=== PATIENT | female | born 1955 | race African-American/Black ===

== ENCOUNTER 2016-07-09 16:32 | Emergency (ER) | payer MEDICARE, OTHER ==
--- NOTE | 2016-07-09 16:54 | ER Document Report ---
ED Medical Screen (RME) - General Chief Complaint: Breathing Difficulty Stated Complaint: BREATHING ISSUES Notes: 60 yo female c/o cough and increasing shortness of breath. pt has hx/o lung cancer with bone mets, undergoing chemo. cough has been ongoing x 1 month, shortness of breath has been worsening x 1 week. oncologist, Dr Nguyễn, concerned pt might be throwing a clot. TRAVEL OUTSIDE OF THE [place] IN LAST 30 DAYS: No - Related Data Allergies/Adverse Reactions: amoxicillin trihydrate [From Augmentin] Allergy (Verified 07/09/16 16:39) azithromycin [Azithromycin] Allergy (Verified 07/09/16 16:39) hydrocodone bitartrate [From Vicodin] Allergy (Verified 07/09/16 16:39) Potassium Clavulanate * [From Augmentin] Allergy (Verified 07/09/16 16:39) moxifloxacin HCl [From Avelox] Adverse Reaction (Verified 07/09/16 16:39) Past Medical History - Social History Chew tobacco use (# tins/day): No Frequency of alcohol use: None Drug Abuse: None Endocrine Medical History: Reports: Hx Diabetes Mellitus Type 1, Hx Diabetes Mellitus Type 2 Renal/ Medical History: Reports: Hx Kidney Stones Malignancy Medical History: Reports: Hx Lung Cancer - Stage IV Past Surgical History: Reports: Hx Orthopedic Surgery - Rotator cuff repair right shoulder - Immunizations Hx Diphtheria, Pertussis, Tetanus Vaccination: No Physical Exam - Vital signs Vitals: Temp Pulse Resp BP Pulse Ox 98.0 F 104 H 20 156/90 H 99 07/09/16 16:43 07/09/16 16:43 07/09/16 16:43 07/09/16 16:43 07/09/16 16:43 Course - Vital Signs Vital signs: Temp Pulse Resp BP Pulse Ox 98.0 F 104 H 20 156/90 H 99 07/09/16 16:43 07/09/16 16:43 07/09/16 16:43 07/09/16 16:43 07/09/16 16:43
[2016-07-09] MEDS ORDERED: MORPHINE SULFATE 10 MG/ML INJ IV PRN ×3 (17:09→19:54)
[2016-07-09] MEDS ORDERED: ONDANSETRON HCL INJ/PF 4 MG/2 ML SDV IV ONE (17:10)
[2016-07-09] MEDS ORDERED: IPRATROPIUM/ALBUTEROL 0.5-2.5 MG/3 ML AMPUL NEB ONE (17:20)
[2016-07-09 17:52] LABS: ABSOLUTE BASOPHILS # (AUTO) 0.1 10^3/uL (0.0-0.2); ABSOLUTE LYMPHOCYTES (AUTO) 0.9 10^3/uL (0.5-4.7); ABSOLUTE MONOCYTES (AUTO) 0.4 10^3/uL (0.1-1.4); ABSOLUTE NEUT (AUTO) 3.9 10^3/uL (1.7-8.2); BASOPHILS % (AUTO) 1.5 % (0-2); EOSINOPHILS % (AUTO) 0.7 % (0-6); HEMOGLOBIN 10.8 g/dL (12.0-15.5); HGB HCT DIFFERENCE -1.6; LYMPHOCYTES % (AUTO) 17.1 % (13-45); MEAN CORPUSCULAR HEMOGLOBIN 24.7 pg (27.0-33.4); MEAN CORPUSCULAR HGB CONC 31.8 g/dL (32.0-36.0); MEAN CORPUSCULAR VOLUME 78 fl (80-97); MONOCYTES % (AUTO) 8.2 % (3-13); RED BLOOD COUNT 4.39 10^6/uL (3.72-5.28); RED CELL DISTRIBUTION WIDTH 17.3 % (11.5-14.0); SEGMENTED NEUTROPHILS % (AUTO) 72.5 % (42-78); WHITE BLOOD COUNT 5.4 10^3/uL (4.0-10.5)
[2016-07-09 18:14] LABS: ALANINE AMINOTRANSFERASE 24 U/L (9-52); ALBUMIN 2.8 g/dL (3.5-5.0); ALKALINE PHOSPHATASE 408 U/L (38-126); ANION GAP 11 (5-19); ASPARTATE AMINO TRANSFERASE 27 U/L (14-36); BILIRUBIN,TOTAL 0.4 mg/dL (0.2-1.3); BLOOD UREA NITROGEN 14 mg/dL (7-20); CALCIUM 8.2 mg/dL (8.4-10.2); CARBON DIOXIDE 23 mmol/L (22-30); CHLORIDE 99 mmol/L (98-107); CREATINE KINASE 21 U/L (30-135); CREATININE RESULT 0.89 mg/dL (0.52-1.25); POTASSIUM 4.4 mmol/L (3.6-5.0); SODIUM 132.8 mmol/L (137-145)
[2016-07-09 18:24] LABS: CREATINE KINASE MB 0.73 ng/mL (<4.55)
[2016-07-09 18:31] LABS: TROPONIN I < 0.012 ng/mL
[2016-07-09] MEDS ORDERED: NORMAL SALINE 1000 ML 1,000 ML IV PRN (18:31)
[2016-07-09 18:37] LABS: GLUCOSE 459 mg/dL (75-110)
[2016-07-09] MEDS ORDERED: INSULIN REG, HUMAN 100 UNIT/ML 3 ML VIAL (PYX) IV ONE (18:45)
--- NOTE | 2016-07-09 20:06 | ER Document Report ---
ED Respiratory Problem - General Chief Complaint: Breathing Difficulty Stated Complaint: BREATHING ISSUES Time seen by provider: 18:00 Mode of Arrival: Wheelchair Information source: Patient Notes: 60-year-old female with metastatic lung cancer presents to the emergency room with shortness of breath. Patient was at the oncology clinic and she was sent in to rule out pulmonary emboli. Patient states she's had progressively worsening shortness of breath over the last few weeks. She has had multiple rounds of antibiotics but the shortness of breath is progressed. She also states that her cancer levels have been increasing. Past medical history: Hypertension, diabetes, metastatic lung cancer: Patient was diagnosed in 2008 with stage IV lung cancer. Since that time, she's developed metastases to the spine and pelvis. TRAVEL OUTSIDE OF THE [place] IN LAST 30 DAYS: No - HPI Patient complains to provider of: Short of breath Onset: Just prior to arrival Initiating Event: Other Quality of pain: Dull - Lung cancer Severity: Moderate Pain Level: 4 Context: Other - Lung cancer Chest pain/discomfort: Constant Cough: denies: Nonproductive, Productive, Stridor, Suspect aspiration Sputum amount: None Associated symptoms: denies: Chills, Fever - Related Data Allergies/Adverse Reactions: amoxicillin trihydrate [From Augmentin] Allergy (Verified 07/09/16 16:39) azithromycin [Azithromycin] Allergy (Verified 07/09/16 16:39) hydrocodone bitartrate [From Vicodin] Allergy (Verified 07/09/16 16:39) Potassium Clavulanate * [From Augmentin] Allergy (Verified 07/09/16 16:39) moxifloxacin HCl [From Avelox] Adverse Reaction (Verified 07/09/16 16:39) Past Medical History - General Information source: Patient - Social History Smoking Status: Former Smoker Cigarette use (# per day): No Chew tobacco use (# tins/day): No Frequency of alcohol use: None Drug Abuse: None Lives with: Family Family History: Reviewed & Not Pertinent Patient has suicidal ideation: No Patient has homicidal ideation: No - Past Medical History Cardiac Medical History: Reports: None Pulmonary Medical History: Reports: Other - Lung cancer EENT Medical History: Reports: None Neurological Medical History: Reports: None Endocrine Medical History: Reports: Hx Diabetes Mellitus Type 1, Hx Diabetes Mellitus Type 2 Renal/ Medical History: Reports: Hx Kidney Stones Malignancy Medical History: Reports: Hx Lung Cancer - Stage IV GI Medical History: Reports: None Musculoskeltal Medical History: Reports None Skin Medical History: Reports None Psychiatric Medical History: Reports: None Traumatic Medical History: Reports: None Infectious Medical History: Reports: None Past Surgical History: Reports: Hx Orthopedic Surgery - Rotator cuff repair right shoulder - Immunizations Hx Diphtheria, Pertussis, Tetanus Vaccination: No Review of Systems - Review of Systems Constitutional: See HPI EENT: No symptoms reported Cardiovascular: No symptoms reported Respiratory: See HPI Gastrointestinal: No symptoms reported Genitourinary: No symptoms reported Female Genitourinary: No symptoms reported Musculoskeletal: No symptoms reported Skin: No symptoms reported Hematologic/Lymphatic: No symptoms reported Neurological/Psychological: No symptoms reported Physical Exam - Vital signs Vitals: Temp Pulse Resp BP Pulse Ox 98.0 F 104 H 20 156/90 H 99 07/09/16 16:43 07/09/16 16:43 07/09/16 16:43 07/09/16 16:43 07/09/16 16:43 Notes: Physical exam: GENERAL: 60-year-old female, alert and oriented 3, very pleasant, she does appear uncomfortable. She is having a lot of pain and is short of breath at times. HEAD: Atraumatic, normocephalic. EYES: Pupils equal round and reactive to light, extraocular movements intact, sclera anicteric, conjunctiva are normal. ENT: oropharynx clear without exudates. Moist mucous membranes. NECK: Normal range of motion, supple without lymphadenopathy or JVD. LUNGS: Breath sounds clear to auscultation bilaterally and equal. No wheezes rales or rhonchi. HEART: Regular rate and rhythm without murmurs, rubs or gallops. ABDOMEN: Soft, nontender, normoactive bowel sounds. No guarding, no rebound. No masses appreciated. EXTREMITIES: Normal range of motion, no pitting or edema. No clubbing or cyanosis. NEUROLOGICAL: Cranial nerves II through XII grossly intact. Normal speech, moving all extremities PSYCH: Normal mood, normal affect. SKIN: Warm, Dry, normal turgor, no rashes or lesions noted. Course - Vital Signs Vital signs: Temp Pulse Resp BP Pulse Ox 98.0 F 104 H 14 156/94 H 98 07/09/16 16:43 07/09/16 16:43 07/09/16 19:01 07/09/16 19:01 07/09/16 19:39 - Laboratory Result Diagrams: 07/09/16 17:35 07/09/16 17:35 Laboratory results interpreted by me: 07/09/16 07/09/16 17:35 17:35 Hgb 10.8 L Hct 34.0 L MCV 78 L MCH 24.7 L MCHC 31.8 L RDW 17.3 H Sodium 132.8 L Glucose 459 H* Calcium 8.2 L Alkaline Phosphatase 408 H Creatine Kinase 21 L Total Protein 6.0 L Albumin 2.8 L - EKG Interpretation by Me Rate: Normal Rhythm: NSR - EKG shows normal sinus rhythm with a ventricular rate of 107, left axis deviation, poor R-wave progression Discharge - Discharge Clinical Impression: dyspnea, lung cancer Condition: Stable Disposition: HOME, SELF-CARE Additional Instructions: Recommendations: Use the oxygen as needed: 2 L nasal cannula. Continue current medicines. Follow-up with Dr. Art at 10 AM tomorrow in the office for chemotherapy. Return to the emergency room for any worsening shortness of breath or any concerns he getting worse.
[2016-07-09 21:13] VITALS: BP 138/93
--- NOTE | 2016-07-09 23:05 | EKG REPORT ---
SEVERITY:- ABNORMAL ECG - SINUS TACHYCARDIA LEFT AXIS DEVIATION LVH WITH SECONDARY REPOLARIZATION ABNORMALITY : Confirmed by: Dharmesh Morgan 09-Jul-2016 23:04:30
== END 2016-07-09 21:16 | disposition home or self-care (01) ==
LOC: ER 16:32
DX: C34.90 Malignant neoplasm of unspecified part of unspecified bronchus or lung (principal); R06.00 Dyspnea, unspecified; E11.9 Type 2 diabetes mellitus without complications; C79.51 Secondary malignant neoplasm of bone; C79.89 Secondary malignant neoplasm of other specified sites; Z88.3 Allergy status to other anti-infective agents; Z88.6 Allergy status to analgesic agent; Z87.891 Personal history of nicotine dependence; Z87.442 Personal history of urinary calculi
CPT/HCPCS: 93005; 96376; 94640; 99285; 96361; 96374; 96375; 36415; 82553; 82962; 82550; 85025; 80053; 84484; 71010; 71275; 93010; J2270; A9270 ×2; J2405; J7030; J1815; J7620

== ENCOUNTER → 2016-10-12 | Outpatient (CLI) | payer MEDICARE, OTHER | LOC: RAD 15:15 | PROVIDERS: ATTEND Internal Medicine Medical Oncology | DX: C34.91 Malignant neoplasm of unspecified part of right bronchus or lung (principal); C79.51 Secondary malignant neoplasm of bone; D63.0 Anemia in neoplastic disease | CPT/HCPCS: 78815; A9552 ==

== ENCOUNTER 2016-10-22 15:19 | Emergency (ER) | payer MEDICARE, OTHER ==
[2016-10-22] MEDS ORDERED: ASPIRIN 81 MG TABLET, CHEWABLE PO ONE (15:24)
[2016-10-22] MEDS ORDERED: NORMAL SALINE 1000 ML 1,000 ML IV PRN (16:01)
--- NOTE | 2016-10-22 16:05 | ER Document Report ---
ED General - General Chief Complaint: Shortness Of Breath Stated Complaint: SHORTNESS OF BREATH Time seen by provider: 16:03 Mode of Arrival: Ambulatory Information source: Patient Notes: This is a 61-year-old female with a history of metastatic lung cancer, diabetes , hypertension who presents to the emergency room with increased weakness, fatigue. Patient was referred to the emergency room from the oncology clinic for the above symptoms. Allergies: Penicillin, fluoroquinolones, macrolides, hydrocodone, carboplatin. Medications: Percocet, glipizide, lisinopril, metformin TRAVEL OUTSIDE OF THE [place] IN LAST 30 DAYS: No - HPI Onset: Last week Onset/Duration: Gradual Quality of pain: Dull Severity: Moderate Pain Level: 2 Associated symptoms: Shortness of breath - Chronic shortness of breath. denies : Chills, Fever Exacerbated by: Movement Relieved by: Denies Similar symptoms previously: Yes Recently seen / treated by doctor: Yes - Related Data Allergies/Adverse Reactions: amoxicillin trihydrate [From Augmentin] Allergy (Verified 07/09/16 16:39) azithromycin [Azithromycin] Allergy (Verified 07/09/16 16:39) hydrocodone bitartrate [From Vicodin] Allergy (Verified 07/09/16 16:39) Potassium Clavulanate * [From Augmentin] Allergy (Verified 07/09/16 16:39) moxifloxacin HCl [From Avelox] Adverse Reaction (Verified 07/09/16 16:39) Past Medical History - General Information source: Patient - Social History Smoking Status: Unknown if Ever Smoked Chew tobacco use (# tins/day): No Frequency of alcohol use: None Drug Abuse: None Lives with: Alone Family History: Reviewed & Not Pertinent Patient has suicidal ideation: No Patient has homicidal ideation: No - Past Medical History Cardiac Medical History: Reports: None Pulmonary Medical History: Reports: Other - Metastatic lung cancer EENT Medical History: Reports: None Neurological Medical History: Reports: None Endocrine Medical History: Reports: Hx Diabetes Mellitus Type 1, Hx Diabetes Mellitus Type 2 Renal/ Medical History: Reports: Hx Kidney Stones Malignancy Medical History: Reports: Hx Lung Cancer - Stage IV GI Medical History: Reports: None Musculoskeltal Medical History: Reports None Skin Medical History: Reports None Psychiatric Medical History: Reports: None Traumatic Medical History: Reports: None Infectious Medical History: Reports: None Past Surgical History: Reports: Hx Orthopedic Surgery - Rotator cuff repair right shoulder - Immunizations Hx Diphtheria, Pertussis, Tetanus Vaccination: No Review of Systems - Review of Systems Constitutional: See HPI EENT: No symptoms reported Cardiovascular: No symptoms reported Respiratory: See HPI Gastrointestinal: See HPI, Poor appetite, Poor fluid intake Genitourinary: No symptoms reported Female Genitourinary: No symptoms reported Musculoskeletal: No symptoms reported Skin: No symptoms reported Hematologic/Lymphatic: No symptoms reported Neurological/Psychological: No symptoms reported Physical Exam - Vital signs Vitals: Pulse Ox 100 10/22/16 15:24 Notes: Physical exam: GENERAL: Cachectic, ill-appearing 61-year-old female, alert and oriented 3. Blood pressure 92/58, heart rate 107, respiratory rate 20 HEAD: Atraumatic, normocephalic. EYES: Pupils equal round and reactive to light, extraocular movements intact, sclera anicteric, conjunctiva are normal. ENT: TMs normal, nares patent, oropharynx clear without exudates. Moist mucous membranes. NECK: Normal range of motion, supple without lymphadenopathy or JVD. LUNGS: Breath sounds clear to auscultation bilaterally and equal. No wheezes rales or rhonchi. HEART: Regular rate and rhythm without murmurs, rubs or gallops. ABDOMEN: Soft, normoactive bowel sounds. No tenderness to palpation. No guarding, no rebound. No masses appreciated. EXTREMITIES: Normal range of motion, no pitting or edema. No clubbing or cyanosis. NEUROLOGICAL: Cranial nerves II through XII grossly intact. Normal speech, normal gait. PSYCH: Normal mood, normal affect. SKIN: Warm, Dry, normal turgor, no rashes or lesions noted. Course - Re-evaluation Re-evalutation: 10/22/16 20:34 Patient observed several hours. She was given IV morphine for pain. She was given some Ativan for anxiety. She routinely K takes pain medicines and anxiety medicines for her cancer. She was given IV fluids and appears much better now. He is currently eating her meal. - Vital Signs Vital signs: Temp Pulse Resp BP Pulse Ox 98.4 F 108 H 18 123/88 H 100 10/22/16 15:34 10/22/16 15:34 10/22/16 22:00 10/22/16 22:00 10/22/16 22:00 - Laboratory Result Diagrams: 10/22/16 17:25 10/22/16 17:25 Laboratory results interpreted by me: 10/22/16 10/22/16 17:25 17:25 WBC 3.9 L Hgb 8.8 L Hct 28.2 L MCV 74 L MCH 23.3 L MCHC 31.3 L RDW 17.8 H Sodium 136.7 L Est GFR (Non-Af Amer) 52 L Glucose 128 H Calcium 8.3 L Total Protein 5.0 L Albumin 2.2 L - Diagnostic Test Radiology reviewed: Image reviewed, Reports reviewed - Chest x-ray shows no infiltrates - EKG Interpretation by Me Rate: Tachycardia - EKG shows sinus tachycardia with a ventricular rate of 111, poor R-wave progression, no acute ST-T wave changes Discharge - Discharge Clinical Impression: weakness, dehydration, metastatic lung cancer Condition: Stable Disposition: HOME, SELF-CARE Additional Instructions: Recommendations: Continue current medicines. Apply the bacitracin to the inside of the left nostril with a Q-tip as discussed : You can do it up to 3 times a day. It does not have to be thick. Follow-up with Dr. Luciano as planned. Return to the emergency room for any shortness of breath or concerns he getting worse. Prescriptions: Bacitracin Zinc [Bacitracin Oint 15 gm] 1 applic TP DAILY #1 tube Referrals: NIKITA LEIVA MD [Primary Care Provider] - Follow up as needed NINI LUCIANO MD [ACTIVE STAFF] - Follow up as needed
[2016-10-22 17:48] LABS: ABSOLUTE BASOPHILS # (AUTO) 0.1 10^3/uL (0.0-0.2); ABSOLUTE LYMPHOCYTES (AUTO) 0.7 10^3/uL (0.5-4.7); ABSOLUTE MONOCYTES (AUTO) 0.3 10^3/uL (0.1-1.4); ABSOLUTE NEUT (AUTO) 2.8 10^3/uL (1.7-8.2); BASOPHILS % (AUTO) 1.3 % (0-2); EOSINOPHILS % (AUTO) 0.7 % (0-6); HEMATOCRIT 28.2 % (36.0-47.0); HEMOGLOBIN 8.8 g/dL (12.0-15.5); HGB HCT DIFFERENCE -1.8; LYMPHOCYTES % (AUTO) 17.7 % (13-45); MEAN CORPUSCULAR HEMOGLOBIN 23.3 pg (27.0-33.4); MEAN CORPUSCULAR HGB CONC 31.3 g/dL (32.0-36.0); MEAN CORPUSCULAR VOLUME 74 fl (80-97); MONOCYTES % (AUTO) 8.8 % (3-13); RED BLOOD COUNT 3.79 10^6/uL (3.72-5.28); RED CELL DISTRIBUTION WIDTH 17.8 % (11.5-14.0); SEGMENTED NEUTROPHILS % (AUTO) 71.5 % (42-78); WHITE BLOOD COUNT 3.9 10^3/uL (4.0-10.5)
[2016-10-22 18:10] LABS: ALANINE AMINOTRANSFERASE 26 U/L (9-52); ALBUMIN 2.2 g/dL (3.5-5.0); ALKALINE PHOSPHATASE 98 U/L (38-126); ANION GAP 9 (5-19); ASPARTATE AMINO TRANSFERASE 28 U/L (14-36); BILIRUBIN,DIRECT 0.3 mg/dL (0.0-0.4); BILIRUBIN,TOTAL 0.3 mg/dL (0.2-1.3); BLOOD UREA NITROGEN 15 mg/dL (7-20); CALCIUM 8.3 mg/dL (8.4-10.2); CARBON DIOXIDE 26 mmol/L (22-30); CHLORIDE 102 mmol/L (98-107); CREATINE KINASE 32 U/L (30-135); CREATININE RESULT 1.08 mg/dL (0.52-1.25); GLUCOSE 128 mg/dL (75-110); SODIUM 136.7 mmol/L (137-145)
[2016-10-22 18:18] LABS: CREATINE KINASE MB 0.38 ng/mL (<4.55)
[2016-10-22 18:19] LABS: TROPONIN I < 0.012 ng/mL
[2016-10-22] MEDS ORDERED: LORAZEPAM 0.5 MG TABLET PO ONE (18:30)
[2016-10-22] MEDS ORDERED: MORPHINE SULFATE 10 MG/ML INJ IV PRN (19:10)
[2016-10-22] MEDS ORDERED: BACITRACIN ZINC OINTMENT 15 GM TP ONE (19:11)
[2016-10-22] MEDS ORDERED: MORPHINE SULFATE 10 MG/ML INJ IV ONE (19:59)
--- NOTE | 2016-10-22 20:07 | EKG REPORT ---
SEVERITY:- ABNORMAL ECG - SINUS TACHYCARDIA LEFT POSTERIOR FASCICULAR BLOCK BORDERLINE R WAVE PROGRESSION, ANTERIOR LEADS : Confirmed by: Monie Valdovinos MD 22-Oct-2016 20:06:13
[2016-10-22 22:16] VITALS: BP 123/88
== END 2016-10-22 22:31 | disposition home or self-care (01) ==
LOC: ER 15:19
DX: C34.90 Malignant neoplasm of unspecified part of unspecified bronchus or lung (principal); R53.1 Weakness; E86.0 Dehydration; R06.02 Shortness of breath; E11.9 Type 2 diabetes mellitus without complications; I10 Essential (primary) hypertension; R53.83 Other fatigue
CPT/HCPCS: 93005; 99285; 96361; 96374; 36415; 82553; 82550; 83735; 85025; 80053; 84484; 71010; 93010; J2270; J7030; A9270; J3490

== ENCOUNTER 2016-10-26 17:01 | Inpatient (IN) | payer MEDICARE, OTHER ==
[2016-10-26] MEDS ORDERED: IPRATROPIUM/ALBUTEROL 0.5-2.5 MG/3 ML AMPUL NEB ONE ×2 (17:35→19:35)
[2016-10-26] MEDS ORDERED: ONDANSETRON HCL INJ/PF 4 MG/2 ML SDV IV ONE (17:36)
[2016-10-26] MEDS ORDERED: MORPHINE SULFATE 10 MG/ML INJ IV ONE ×3 (17:36→21:15)
[2016-10-26] MEDS ORDERED: NORMAL SALINE 500 ML IV ONE ×2 (17:37→21:24)
--- NOTE | 2016-10-26 17:41 | ER Document Report ---
ED General - General Chief Complaint: Shortness Of Breath Stated Complaint: SHORTNESS OF BREATH Mode of Arrival: Ambulatory Information source: Patient, Relative Notes: This is a 61-year-old female with a history of stage IV metastatic lung cancer who presents with worsening shortness of breath and pain all over for the past 2 or 3 days. Of note she was seen here with similar symptoms 4 days ago. She denies fevers, chills. She is currently undergoing chemotherapy regimen by Dr Cortez, last treatment 2 weeks ago. TRAVEL OUTSIDE OF THE [place] IN LAST 30 DAYS: No - Related Data Allergies/Adverse Reactions: amoxicillin trihydrate [From Augmentin] Allergy (Verified 10/26/16 23:09) azithromycin [Azithromycin] Allergy (Verified 10/26/16 17:10) hydrocodone bitartrate [From Vicodin] Allergy (Verified 10/26/16 17:10) Potassium Clavulanate * [From Augmentin] Allergy (Verified 10/26/16 23:09) moxifloxacin HCl [From Avelox] Adverse Reaction (Verified 10/26/16 17:10) Past Medical History - General Information source: Patient, Relative, [facility] Records - Social History Smoking Status: Former Smoker Family History: Reviewed & Not Pertinent Patient has suicidal ideation: No Patient has homicidal ideation: No Endocrine Medical History: Reports: Hx Diabetes Mellitus Type 1, Hx Diabetes Mellitus Type 2 Renal/ Medical History: Reports: Hx Kidney Stones. Denies: Hx Peritoneal Dialysis Malignancy Medical History: Reports: Hx Lung Cancer - Stage IV Past Surgical History: Reports: Hx Orthopedic Surgery - Rotator cuff repair right shoulder - Immunizations Hx Diphtheria, Pertussis, Tetanus Vaccination: No Review of Systems - Review of Systems Constitutional: denies: Chills, Fever EENT: No symptoms reported Cardiovascular: See HPI, Dyspnea. denies: Chest pain Respiratory: See HPI Gastrointestinal: No symptoms reported Musculoskeletal: No symptoms reported Hematologic/Lymphatic: No symptoms reported Neurological/Psychological: No symptoms reported Physical Exam - Vital signs Vitals: Temp Pulse Resp BP Pulse Ox 97.8 F 119 H 22 H 124/81 72 L 10/26/16 17:08 10/26/16 17:08 10/26/16 17:08 10/26/16 17:08 10/26/16 17:08 - Notes Notes: PHYSICAL EXAMINATION: GENERAL: cachetic, chronically ill appearing female in mild to moderate respiratory distress, with conversational dyspnea HEAD: Atraumatic, normocephalic. EYES: Pupils equal round and reactive to light, extraocular movements intact, sclera anicteric, conjunctiva are normal. ENT: nares patent, oropharynx clear without exudates. mucous membranes dry NECK: Normal range of motion, supple without lymphadenopathy LUNGS: scattered wheezes bilaterally, R>L. Diminished breath sounds bilateral bases. Tachypnea with retractions. HEART: Tachycardic rate, regular rhythm, no murmur appreciated ABDOMEN: Soft, nontender, normoactive bowel sounds. No guarding, no rebound EXTREMITIES: Normal range of motion, no pitting or edema. NEUROLOGICAL: Cranial nerves grossly intact. No gross focal motor or sensory deficits appreciated PSYCH: Normal mood, somewhat anxious affect. SKIN: Warm, Dry, normal turgor, no rashes or lesions noted. Course - Re-evaluation Re-evalutation: 10/26/16 17:40 Pt appears emaciated and chronically ill. She has an increased O2 requirement. I had an initial discussion with patient and her family regarding her code status, and she states she has never really had this discussion before and as of this point desires full resuscitation including intubation should that become necessary. Pt had initial good response to neb treatments, but later work of breathing noted to increase and her O2 requirement increased to 6L NC. BiPap ordered, although initially patient refused secondary to increased anxiety. Ativan ordered. Pt conversant, noted to eat a salad while here in the ER, yet work of breathing increasing. CT does not demonstrate acute change from prior, and is consistent with diffuse metastatic disease. No PE. Discussed with Dr Camacho for admission. - Vital Signs Vital signs: Temp Pulse Resp BP Pulse Ox 97.8 F 122 H 27 H 95/70 L 100 10/26/16 17:11 10/26/16 17:11 10/26/16 21:55 10/26/16 23:01 10/26/16 23:01 - Laboratory Result Diagrams: 10/26/16 17:35 10/26/16 17:35 Laboratory results interpreted by me: 10/26/16 10/26/16 10/26/16 17:35 17:35 19:55 Hgb 10.2 L Hct 32.9 L MCV 74 L MCH 22.9 L MCHC 31.1 L RDW 19.4 H Lymphocytes % 12.7 L Potassium 5.4 H Glucose 160 H AST 40 H Alkaline Phosphatase 138 H Total Protein 5.4 L Albumin 2.4 L Urine Protein >=500 H Ur Leukocyte Esterase MODERATE H Urine Ascorbic Acid 40 H - Diagnostic Test Radiology reviewed: Reports reviewed - CXR: no change CTA chest: no PE, no significant change from prior, metastatic lung CA Critical Care Note - Critical Care Note Total time excluding time spent on procedures (mins): 35 - minutes of critical care time spent in direct contact evaluating and reevaluating the patient, treating symptoms, reviewing labs and studies and speaking with family and consultants excluding any procedures Discharge - Discharge Clinical Impression: Respiratory distress Stage 4 lung cancer Qualifiers: Laterality: unspecified laterality Qualified Code(s): C34.90 - Malignant neoplasm of unspecified part of unspecified bronchus or lung UTI (urinary tract infection) Qualifiers: Urinary tract infection type: site unspecified Hematuria presence: without hematuria Qualified Code(s): N39.0 - Urinary tract infection, site not specified Condition: Serious Disposition: ADMITTED INPATIENT Admitting Provider: Hospitalist - Dr Camacho Unit Admitted: ICU
[2016-10-26 18:05] LABS: ABSOLUTE BASOPHILS # (AUTO) 0.1 10^3/uL (0.0-0.2); ABSOLUTE LYMPHOCYTES (AUTO) 0.8 10^3/uL (0.5-4.7); ABSOLUTE MONOCYTES (AUTO) 0.7 10^3/uL (0.1-1.4); ABSOLUTE NEUT (AUTO) 4.6 10^3/uL (1.7-8.2); BASOPHILS % (AUTO) 1.1 % (0-2); EOSINOPHILS % (AUTO) 0.4 % (0-6); HEMATOCRIT 32.9 % (36.0-47.0); HEMOGLOBIN 10.2 g/dL (12.0-15.5); HGB HCT DIFFERENCE -2.3; LYMPHOCYTES % (AUTO) 12.7 % (13-45); MEAN CORPUSCULAR HEMOGLOBIN 22.9 pg (27.0-33.4); MEAN CORPUSCULAR HGB CONC 31.1 g/dL (32.0-36.0); MEAN CORPUSCULAR VOLUME 74 fl (80-97); MONOCYTES % (AUTO) 10.5 % (3-13); RED BLOOD COUNT 4.47 10^6/uL (3.72-5.28); RED CELL DISTRIBUTION WIDTH 19.4 % (11.5-14.0); SEGMENTED NEUTROPHILS % (AUTO) 75.3 % (42-78); WHITE BLOOD COUNT 6.2 10^3/uL (4.0-10.5)
[2016-10-26 18:20] LABS: ALANINE AMINOTRANSFERASE 24 U/L (9-52); ALBUMIN 2.4 g/dL (3.5-5.0); ALKALINE PHOSPHATASE 138 U/L (38-126); ANION GAP 9 (5-19); ASPARTATE AMINO TRANSFERASE 40 U/L (14-36); BILIRUBIN,DIRECT 0.1 mg/dL (0.0-0.4); BILIRUBIN,TOTAL 0.2 mg/dL (0.2-1.3); BLOOD UREA NITROGEN 18 mg/dL (7-20); CALCIUM 8.5 mg/dL (8.4-10.2); CARBON DIOXIDE 25 mmol/L (22-30); CHLORIDE 104 mmol/L (98-107); CREATININE RESULT 0.93 mg/dL (0.52-1.25); GLUCOSE 160 mg/dL (75-110); POTASSIUM 5.4 mmol/L (3.6-5.0); SODIUM 138.4 mmol/L (137-145); TOTAL PROTEIN 5.4 g/dL (6.3-8.2)
[2016-10-26 20:42] LABS: APPEARANCE,URINE SLIGHTLY-CLOUDY; BILIRUBIN,URINE NEGATIVE (NEGATIVE); GLUCOSE, URINE NEGATIVE (NEGATIVE); KETONES,URINE NEGATIVE (NEGATIVE); LEUKOCYTE ESTERASE,URINE MODERATE (NEGATIVE); NITRITE,URINE NEGATIVE (NEGATIVE); PROTEIN,URINE >=500 mg/dL (NEGATIVE); URINE SPECIFIC GRAVITY 1.011; UROBILINOGEN,URINE NEGATIVE mg/dL (<2.0)
[2016-10-26] MEDS ORDERED: METHYLPREDNISOLONE INJ 125 MG/2 ML SDV IV ONE (21:07)
[2016-10-26] MEDS ORDERED: CEFTRIAXONE 1 GM/D5W RTU 50 ML IV ONE (21:08)
[2016-10-26] MEDS ORDERED: LORAZEPAM INJ 2 MG/1 ML VIAL IV ONE ×2 (21:15→21:43)
[2016-10-26] MEDS ORDERED: LEVALBUTEROL HCL NEB 1.25 MG/3 ML AMPUL NEB ONE (21:26)
[2016-10-26] MEDS ORDERED: GLUCAGON,HUMAN RECOMB 1 MG INJ IM PRN (23:05)
[2016-10-26] MEDS ORDERED: DEXTROSE 50%-WATER 25 GM/50 ML DISP.SYRIN IV PRN ×2 (23:05)
[2016-10-26] MEDS ORDERED: DEXTROSE 40% GEL 15 GM TUBE PO PRN ×2 (23:05)
[2016-10-26] MEDS ORDERED: NORMAL SALINE 1000 ML 1,000 ML IV PRN (23:10)
[2016-10-26] MEDS ORDERED: ALBUTEROL SULFATE 0.083% NEB 2.5 MG/3 ML AMPUL NEB PRN (23:10)
[2016-10-26] MEDS ORDERED: PHARMACY COMMUNICATION ORDER MC NR (23:15)
[2016-10-26] MEDS ORDERED: VANCOMYCIN HCL 0 MG in DEXTROSE 5%-WATER 250 ML IV NR (23:15)
[2016-10-26] MEDS ORDERED: ACETAMINOPHEN 650 MG SUPP.RECT PR PRN (23:19)
[2016-10-26] MEDS ORDERED: CEFEPIME 1 GM/D5W RTU 50 ML IV SCH (23:30)
[2016-10-26 23:31] LABS: VENOUS BLOOD HCO3 23.8 mmol/L (20-32); VENOUS BLOOD PCO2 50.3 mmHg (35-63); VENOUS BLOOD PH 7.29 (7.30-7.42)
--- NOTE | 2016-10-26 23:38 | PDOC H&P ---
History of Present Illness Admission Date/PCP: 10/26/16 21:51 PCP ?? [facility] Patient complains of: SOB History of Present Illness: SATHYA HINSON is a 61 year old female with stage IV lung cancer, metastatic to bone, long-term smoker, having quit 2 weeks ago, but with no specific diagnosis of asthma or COPD, who presents to the emergency room for evaluation of above complaint. Patient has been discussed with emergency room physician who evaluated the patient. Patient is quite ill and fatigued, along with somewhat confused and is able to provide no history whatsoever in terms of acute or chronic events, review of systems, personal habits, family history, etc. daughter is present at her bedside, with her approval, and is helpful and informative. No old inpatient records available for review. 2 to three-day history of progressive shortness of breath and generalized pain, particularly in spine and chest wall. No fever or chills, nausea vomiting, diarrhea or dysuria, or abdominal pain. No recent antibiotic usage. Patient has been placed on BiPAP by the emergency room physician. Emergency room physician also discussed CODE STATUS with patient and daughter. Per daughter, that topic reportedly has never been addressed on an outpatient basis. She and patient desire full CODE STATUS. . Laboratory results are listed in [facility] and are reviewed. X-ray summary results are listed below, with full report(s) reviewed. Stable right upper lobe cavitary lesion noted on CT scan.. EKG reviewed. And compared to prior tracing from the of this month. Social history/personal habits: . Lives alone, but with close family follow-up. Long-term smoker; stopped 2 weeks ago. No alcohol or illicit drug use. Allergies/adverse reactions are listed in [facility] and are reviewed. No problems with Rocephin given earlier this emergency room stay. Home medications Home medications initially autopopulated into [facility] may not accurately reflect patient's true medications, dosages, and/or frequencies. fastener technologist to reconcile medications. Unfortunately, patient not able to provide any information regarding her medications/dosages/frequencies. REVIEW OF SYSTEMS: Constitutional: No fever or chills. Eyes: No current vision complaints. ENT: No swallowing problems or complaints. No hearing problems or complaints. Pulmonary: See history and present illness. Cardiovascular: See history and present illness. Gastrointestinal: No current complaints, including nausea or vomiting. Skin: No current complaints, including rashes. Hematologic: No unusual easy bruising or bleeding. Neurologic: No current complaints, including numbness or tingling. Musculoskeletal: See history and present illness. Psychiatric: Mild Anxiety Endocrine: No current complaints, including polyuria. Genitourinary: No current complaints, including dysuria. PHYSICAL EXAMINATION: 5 feet 3 inches tall. 41.8 kg. BMI 16.3 kg/m. Blood pressure 110/79. Pulse 118 and regular. Respirations are 24 and unlabored. 95% saturation on BiPAP 12 /6, 35% FiO2. Temperature 97.8. Daughter is present at patient's side; patient approves. Emaciated quite frail appearing quite fatigued somnolent -Irish female. Maintaining her airway well. BiPAP mask is in place. Does awaken briefly when she is addressed in a normal volume voice, but fairly quickly falls back to sleep. Somewhat confused answers and occasional mumbling to questions. Skin is warm and dry. No grossly obvious evidence of rash in areas of skin examined. No subcutaneous nodules palpated. ENT: Hearing grossly normal to normal conversation. Tongue midline on protrusion pink and slightly tacky. Exam slightly limited by BiPAP mask with attaching straps. Eyes: No scleral icterus. Pupils equal and reactive to light at 4 mm. [place] conjunctivae. Neck is supple and nontender to gentle active range of motion and palpation. Midline trachea. No palpable thyroid nodule mass enlargement or tenderness. Lymphatic: No palpable cervical or clavicular nodes. Neck and lymphatic exams limited by patient body habitus. Exam slightly limited by BiPAP mask with attaching straps. Psychiatric: Not able to be adequately examined due to above issues. Lungs: Auscultation reveals equal breath sounds bilaterally. No use of accessory respiratory muscles. Slightly coarse breath sounds bilaterally. Brief early mild expiratory wheezing bilaterally. Cardiovascular: Heart regular rate and rhythm, without gallop murmur or rub. No abdominal aortic bruits. No ankle or pedal edema. palpable dorsalis pedis pulses. Difficult to evaluate for carotid bruit due to airway sounds from BiPAP device. Abdomen: soft, slightly, distended nontender with positive bowel sounds. Unable to adequately evaluate abdomen for masses or organomegaly due to distention. Extremities: Feet are warm and dry. No calf tenderness to compression. No grossly obvious visual evidence of calf swelling. Gentle manipulation of lower extremities fails to reveal any obvious evidence of injury or instability to knees hips or ankles. Neurologic: Patellar reflexes absent. Absent Babinski. Light touch can't be adequately determined due to her current mental status.. Dorsiflexion and plantarflexion of feet 5 / 5 and symmetric. Past Medical History Cardiac Medical History: Reports: Hypertension Denies: Congestive Heart Failure, DVT, Myocardial Infarction, Hyperlipidema, Pulmonary Embolism Pulmonary Medical History: Reports: Other - Stage IV lung cancer Denies: Asthma, Chronic Obstructive Pulmonary Disease (COPD) EENT Medical History: Denies: Eyes, Ears Neurological Medical History: Denies: Hemorrhagic CVA, Ischemic CVA, Seizures Endocrine Medical History: Reports: Diabetes Mellitus Type 2 Denies: Diabetes Mellitus Type 1, Hyperthyroidism, Hypothyroidism Renal/ Medical History: Reports: Nephrolithiasis - Distant history Malignancy Medical History: Reports: Lung Cancer - Stage IV GI Medical History: Denies: Cirrhosis, Gastroesophageal Reflux Disease, Hepatitis, Peptic Ulcer Disease Musculoskeltal Medical History: Denies: Arthritis Skin Medical History: Denies: Eczema, Psoriasis Psychiatric Medical History: Reports: General Anxiety Disorder, Tobacco Dependency Denies: Alcohol Dependency, Depression, Substance Abuse Hematology: Reports: Anemia Infectious Medical History: Denies: Hepatitis B, Hepatitis C Past Surgical History Past Surgical History: Reports: Orthopedic Surgery - Rotator cuff repair right shoulder Social History Information Source: Relative, Emergency Med Personnel, [facility] Lives with: Alone Smoking Status: Former Smoker Frequency of Alcohol Use: None Drugs: None - Advance Directive Resuscitation Status: Full Code Surrogate healthcare decision maker:: Daughters Family History Family History: Reviewed & Not Pertinent, DM, Hypertension Parental Family History Reviewed: Yes - mother diabetic and hypertensive. Father with dementia and hypertension. Children Family History Reviewed: Yes - Diabetes mellitus Sibling(s) Family History Reviewed.: Yes - Diabetes mellitus and hypertension Medication/Allergy Home Medications: Aspirin [Aspirin EC] 81 mg PO DAILY 10/27/16 Dronabinol [Marinol] 5 mg PO BID 10/27/16 Magic Mouthwash 5 ml PO DAILYP PRN 10/27/16 Morphine Sulfate [Morphine Sulfate ER] 30 mg PO Q12 10/27/16 Ondansetron HCl [Zofran 8 mg Tablet] 8 mg PO Q6 10/27/16 Oxycodone HCl/Acetaminophen [Percocet 10-325 mg Tablet] 1 tab PO Q4HP PRN RX: Glipizide [Glucotrol 10 mg Tablet] 10 mg PO BID 10/27/16 RX: Lisinopril [Prinivil 10 mg Tablet] 10 mg PO DAILY 10/27/16 RX: Lorazepam [Ativan 0.5 mg Tablet] 0.5 mg PO Q6HP PRN 10/27/16 RX: Multivitamin [Daily Multiple Vitamin] 1 tab PO DAILY 10/27/16 Allergies/Adverse Reactions: amoxicillin trihydrate [From Augmentin] Allergy (Verified 10/26/16 23:09) azithromycin [Azithromycin] Allergy (Verified 10/26/16 17:10) hydrocodone bitartrate [From Vicodin] Allergy (Verified 10/26/16 17:10) Potassium Clavulanate * [From Augmentin] Allergy (Verified 10/26/16 23:09) moxifloxacin HCl [From Avelox] Adverse Reaction (Verified 10/26/16 17:10) Physical Exam Vital Signs: Temp Pulse Resp BP Pulse Ox 97.8 F 122 H 22 H 110/79 97 10/26/16 17:11 10/26/16 17:11 10/26/16 19:01 10/26/16 22:01 10/26/16 22:01 Results Impressions: Chest X-Ray 10/26/16 17:35 IMPRESSION: DIFFUSE PARENCHYMAL OPACITIES THROUGHOUT BOTH LUNGS. COMBINATION OF SCARRING AND METASTATIC DISEASE. PNEUMONIA CANNOT BE EXCLUDED. SIMILAR APPEARANCE TO THE PRIOR STUDY. Chest/Abdomen CTA 10/26/16 19:06 IMPRESSION: 1. NORMAL CTA OF THE CHEST. NO PULMONARY EMBOLI. 2. EXTENSIVE PARENCHYMAL CHANGES IN THE LUNGS SECONDARY TO METASTATIC DISEASE. STABLE CONFLUENT AREAS OF NODULARITY/CONSOLIDATION. NO CHANGE FROM THE PREVIOUS STUDY. 3. BONY METASTASES. Assessment & Plan - Diagnosis (1) Abnormal chest CT Is this a current diagnosis for this admission?: YesPlan: With cavitary lesion, will proceed with negative airflow room, airborne precautions, pulmonology consult, and AFB smear and culture every morning 3. Discussed with nursing staff, including hospital charge nurse and patient's emergency room nurse. (2) Acute respiratory failure Qualifiers: Respiratory failure complication: unspecified whether with hypoxia or hypercapnia Qualified Code(s): J96.00 - Acute respiratory failure, unspecified whether with hypoxia or hypercapnia Is this a current diagnosis for this admission?: YesPlan: Patient will be admitted under COPD exacerbation and pneumonia protocol. Incentive spirometry twice a day. Scheduled DuoNeb's. PRN albuterol nebs Solu-Medrol IV Pepcid for gastritis prophylaxis. Pulmonology consult. Antibiotics will consist of cefepime, intravenous doxycycline, and intravenous vancomycin. Pharmacy to assist with dosing.. Daughter understands that confusion may become a problem. Patient is a full code. Knee high SCDs for DVT prophylaxis, along with subcutaneous heparin. Impression and plans were discussed with daughter, who concurs. She understands that patient is quite ill. Time spent in evaluation and management of patient: 68 critical care minutes. (3) UTI (urinary tract infection) Qualifiers: Urinary tract infection type: site unspecified Is this a current diagnosis for this admission?: YesPlan: Blood and urine cultures. IV antibiotics. (4) Anemia Qualifiers: Anemia type: unspecified type Qualified Code(s): D64.9 - Anemia, unspecified Is this a current diagnosis for this admission?: YesPlan: Follow-up CBC with differential. No need for transfusion at present time. (5) Stage 4 lung cancer Qualifiers: Laterality: unspecified laterality Qualified Code(s): C34.90 - Malignant neoplasm of unspecified part of unspecified bronchus or lung Is this a current diagnosis for this admission?: YesPlan: Oncology consult. (6) Diabetes mellitus type 2 in nonobese Is this a current diagnosis for this admission?: YesPlan: Currently nothing by mouth. Accu-Cheks with appropriate sliding scale coverage. (7) HTN (hypertension) Qualifiers: Hypertension type: essential hypertension Qualified Code(s): I10 - Essential (primary) hypertension Is this a current diagnosis for this admission?: YesPlan: Resume home medications as appropriate once these have been determined and reviewed. - Inpatient Certification Based on my medical assessment, after consideration of the patient's comorbidities, presenting symptoms, or acuity I expect that the services needed warrant INPATIENT care.: Yes I certify that my determination is in accordance with my understanding of Medicare's requirements for reasonable and necessary INPATIENT services [42 CFR 412.3e].: Yes Medical Necessity: Significant Comorbidiites Make Outpatient Treatment Too Risky , Need Close Monitoring Due to Risk of Patient Decompensation, Need For IV Fluids, Need For Continuous Telemetry Monitoring, Need for Nebulizer Therapy and Monitoring of Response, Need for IV Antibiotics, Risk of Complication if Not Cared For in Hospital, Risk of Diagnosis Which Will Require Inpatient Eval/ Care/Monitoring Post Hospital Care: D/C or Transfer Summary
[2016-10-26] MEDS ORDERED: CEFEPIME INJ 1 GM VIAL IV PRN (23:47)
[2016-10-26 23:48] LABS: MAGNESIUM 1.5 mg/dL (1.6-2.3); POTASSIUM 5.1 mmol/L (3.6-5.0)
[2016-10-27] MEDS ORDERED: CEFEPIME 1 GM/D5W RTU 1 GM/50 ML RTUPB IV ONE
[2016-10-27] MEDS ORDERED: VANCOMYCIN HCL INJ 1000 MG VIAL IV PRN
[2016-10-27] MEDS ORDERED: VANCOMYCIN HCL 750 MG in DEXTROSE 5%-WATER 250 ML IV ONE (01:00)
[2016-10-27] MEDS ORDERED: MAGNESIUM SULFATE/D5W 1 GM/100 ML RTUPB IV ONE (03:15)
[2016-10-27] MEDS ORDERED: DOXYCYCLINE HYCLATE INJ 100 MG VIAL ONE ×2 (03:40→22:51)
[2016-10-27 04:24] LABS: VENOUS BLOOD BASE EXCESS -4.6 mmol/L; VENOUS BLOOD HCO3 21.8 mmol/L (20-32); VENOUS BLOOD PCO2 45.7 mmHg (35-63); VENOUS BLOOD PH 7.3 (7.30-7.42)
[2016-10-27] MEDS: METHYLPREDNISOLONE INJ 40 MG/1 ML SDV IV SCH ×3 (05:57→21:33)
[2016-10-27 06:19] LABS: ABSOLUTE LYMPHOCYTES (AUTO) 0.3 10^3/uL (0.5-4.7); ABSOLUTE MONOCYTES (AUTO) 0.1 10^3/uL (0.1-1.4); ABSOLUTE NEUT (AUTO) 4.1 10^3/uL (1.7-8.2); BASOPHILS % (AUTO) 0.3 % (0-2); HEMATOCRIT 27.9 % (36.0-47.0); HEMOGLOBIN 8.7 g/dL (12.0-15.5); HGB HCT DIFFERENCE -1.8; LYMPHOCYTES % (AUTO) 6.4 % (13-45); MEAN CORPUSCULAR HEMOGLOBIN 23.2 pg (27.0-33.4); MEAN CORPUSCULAR HGB CONC 31.1 g/dL (32.0-36.0); MEAN CORPUSCULAR VOLUME 75 fl (80-97); MONOCYTES % (AUTO) 1.2 % (3-13); RED BLOOD COUNT 3.74 10^6/uL (3.72-5.28); RED CELL DISTRIBUTION WIDTH 18.5 % (11.5-14.0); SEGMENTED NEUTROPHILS % (AUTO) 92.1 % (42-78); WHITE BLOOD COUNT 4.5 10^3/uL (4.0-10.5)
[2016-10-27 06:38] LABS: ANION GAP 7 (5-19); BLOOD UREA NITROGEN 18 mg/dL (7-20); CALCIUM 7.5 mg/dL (8.4-10.2); CARBON DIOXIDE 23 mmol/L (22-30); CHLORIDE 105 mmol/L (98-107); CREATININE RESULT 0.92 mg/dL (0.52-1.25); GLUCOSE 373 mg/dL (75-110); POTASSIUM 5.6 mmol/L (3.6-5.0); SODIUM 135.1 mmol/L (137-145)
[2016-10-27] MEDS: INSULIN LISPRO 100 UNIT/ML 3 ML VIAL SUBCUT PRN ×4 (06:52→23:08)
[2016-10-27] MEDS: IPRATROPIUM/ALBUTEROL 0.5-2.5 MG/3 ML AMPUL NEB SCH ×3 (08:28→19:52)
[2016-10-27] MEDS ORDERED: FAMOTIDINE INJ/PF 20 MG/2 ML SDV IV SCH (10:00)
[2016-10-27] MEDS: DOXYCYCLINE HYCLATE 100 MG in DEXTROSE 5%-WATER 250 ML IV SCH ×2 (10:05→23:06)
[2016-10-27] MEDS: FAMOTIDINE INJ/PF 20 MG/2 ML SDV IV SCH (10:06)
--- NOTE | 2016-10-27 10:45 | EKG REPORT ---
SEVERITY:- ABNORMAL ECG - SINUS TACHYCARDIA PROBABLE LEFT ATRIAL ABNORMALITY LEFT ANTERIOR FASCICULAR BLOCK PROBABLE LEFT VENTRICULAR HYPERTROPHY : Confirmed by: Dharmesh Morgan 27-Oct-2016 10:45:03
[2016-10-27] MEDS: MORPHINE SULFATE 10 MG/ML INJ IV PRN ×2 (11:36→17:23)
--- NOTE | 2016-10-27 12:32 | Palliative Consultation Report ---
Consultation From:: YUMIKO GRIFFITH - HPI Chief Complaint: Lung Cancer, related dyspnea HPI: Appreciate consult request with this unfortunate 61 year old woman who has been battling lung cancer since 2008. SHe was hospitalized on 10/26 for dyspnea and in ICU for BIPAP therapy. Today she is breathing better and is using nasal cannula and able to talk and eat. Mrs. Corcoran discussed her long time illness with her stage IV lung cancer and metastasis. She has been treating this with chemo for a long time and says she knows she has to do chemo for the rest of her life. She spoke very candidly in front of her daughter and friend about her fears of suffocation, her anxiety , her inability to live in her current apartment any longer and her fear of being alone. We also stalked about advance directives to clarify some of her misconceptions. SHe thought that if she had to be on a ventilator, she could still live a t home and take it with her shopping etc. She did not have good understanding about the use of these although I am sure it has been explained to her. Daughter was supportive of patient stating she would not want to live on machines and in a bed for the rest of her life. We discussed at length feeding tubes, Bipap vs intubation, CPR, etc. I did also discuss comfort care and medications that can be used to prevent anxiety and air hunger, etc. We discussed the difference in use of ventilators for temporary conditions as opposed to use with end stage lung disease as patient is facing. The second daughter arrived and was very surprised that her mother had said she didn't want to be kept alive like that. After she spoke with her mother, the patient said she didnt mean her statements, that she WOULD want to be intubated , CPR, etc. I tried to discuss with the second daughter but she was not as receptive to conversation and I could see this was upsetting the patient. I gave them a copy of "Hard Choices ofr [place] People" booklet and asked them to read it and discuss amongst themselves to be able to honor the patients wishes. Patient denies a lot of pain, states she takes MS COntin 30mg q 12 hours at home and Percocet between doses. We discussed how these medications not only hep relieve pain, but actually help with breathing and anxiety. SHe also takes an antianxiety medication but says she still has frequent panic attacks when she becomes dyspneic. She is on medication to help her appetite but says she still eats only a very little each day. Onset: Yesterday Onset/Duration: Gradual Quality of Pain: Dull Severity: Mild Associated Symptoms: Shortness of breath, Weakness Exacerbated by: Movement Relieved by: Remaining still Past Medical History(Consults) - General Information Source: Patient, [facility] Records Allergies/Adverse Reactions: amoxicillin trihydrate [From Augmentin] Allergy (Verified 10/26/16 23:09) azithromycin [Azithromycin] Allergy (Verified 10/26/16 17:10) hydrocodone bitartrate [From Vicodin] Allergy (Verified 10/26/16 17:10) Potassium Clavulanate * [From Augmentin] Allergy (Verified 10/26/16 23:09) moxifloxacin HCl [From Avelox] Adverse Reaction (Verified 10/26/16 17:10) - Social History Lives with: Alone Family History: Reviewed & Not Pertinent Parental Family History Reviewed: No Children Family History Reviewed: No Sibling(s) Family History Reviewed.: No Smoking Status: Former Smoker Frequency of Alcohol Use: None Hx Recreational Drug Use: No Drugs: None Hx Prescription Drug Abuse: No - Past Medical History Cardiac Medical History: Reports: Hx Hypertension Denies: Hx Congestive Heart Failure, Hx DVT, Hx Heart Attack, Hx Hypercholesterolemia, Hx Pulmonary Embolism Pulmonary Medical History: Reports: Other - Stage IV lung cancer Denies: Hx Asthma, Hx COPD EENT Medical History: Denies: Eyes, Ears Neurological Medical History: Reports: None. Denies: Hx Seizures Endocrine Medical History: Reports: Hx Diabetes Mellitus Type 1, Hx Diabetes Mellitus Type 2. Denies: Hx Hyperthyroidism, Hx Hypothyroidism Renal/ Medical History: Reports: Hx Kidney Stones. Denies: Hx Peritoneal Dialysis Malignancy Medical History: Reports: Hx Lung Cancer - Stage IV GI Medical History: Denies: Hx Cirrhosis, Hx Gastroesophageal Reflux Disease, Hx Hepatitis Musculoskeltal Medical History: Denies Hx Arthritis Skin Medical History: Denies Hx Eczema, Denies Hx Psoriasis Psychiatric Medical History: Reports: Hx Anxiety Denies: Hx Depression Infectious Medical History: Denies: Hx Hepatitis Hematology: Reports: Anemia - Surgical History Past Surgical History: Reports: Hx Orthopedic Surgery - Rotator cuff repair right shoulder Review of systems Constitutional: Weakness, Weight loss EENT: No symptoms reported Cardiovascular: Orthopnea, Dyspnea Respiratory: Cough, Short of breath Gastrointestinal: Poor appetite Geniturinary: No symptoms reported Female Genitourinary: No symptoms reported Musculoskeltal: No symptoms reported Skin: No symptoms reported Hematologic/Lymphatic: No symptoms reported, Anemia Neurological/Psychological: Anxiety Ojective:Exam Vital Signs: Temp Pulse Resp BP Pulse Ox 97.7 F 97 32 H 124/84 100 10/27/16 05:00 10/27/16 08:28 10/27/16 08:28 10/27/16 05:55 10/27/16 08:28 - General General Appearance: Alert, Anxious - HEENT Head: Normocephalic, Atraumatic Eyes: Pale conjunctiva Mucous membrane: Normal, Moist - Respiratory Respiratory Status: Labored Chest Status: Pain with cough Breath sounds: Decreased air movement - Neurological Cognition: Normal Orientation: AAOx4, Alert, Oriented to person, Oriented to place, Oriented to time Speech: Normal Cranial nerves: Normal Sensory: Normal - Psychological Associated symptoms: Anxious Plan and Recommendation - Time Spent with Patient Time spent with patient: 40 to 60 Minutes - 35 minutes spent with patient and family, total 65 min in chart review and consultation with hospitalist
[2016-10-27] MEDS ORDERED: MAGIC MOUTHWASH PO PRN (12:52)
[2016-10-27] MEDS ORDERED: (PENDING PHARMACY ID) (Oxycodone Hcl/Acetaminophen [Percocet 10-325 Mg Tablet] 1 TAB) PO PRN (12:52)
[2016-10-27] MEDS ORDERED: NYSTATIN/DEXAMETH/DIPHEN SUSP 120 ML PO PRN (13:08)
[2016-10-27] MEDS ORDERED: DEXTROSE 40% GEL 15 GM TUBE PO PRN ×2 (13:11)
[2016-10-27] MEDS ORDERED: DEXTROSE 50%-WATER 25 GM/50 ML DISP.SYRIN IV PRN ×2 (13:11)
[2016-10-27] MEDS ORDERED: GLUCAGON,HUMAN RECOMB 1 MG INJ IM PRN (13:11)
[2016-10-27] MEDS: OXYCODONE HCL IR 5 MG TABLET PO PRN (13:30)
[2016-10-27] MEDS ORDERED: ASPIRIN 81 MG TABLET, ENT COATED PO ONE (13:30)
[2016-10-27] MEDS ORDERED: LISINOPRIL 10 MG TABLET PO ONE (13:30)
[2016-10-27] MEDS: OXYCODONE-ACETAMINOPHEN 5-325 MG TABLET PO PRN (13:31)
--- NOTE | 2016-10-27 13:41 | PDOC PROGRESS REPORT ---
Subjective Progress Note for:: 10/27/16 Subjective:: Patient seen on morning rounds. She is resting in bed on BiPAP. Presently her oxygen saturation is 100 % on current settings. She was placed on nasal cannula by respiratory so she can eat breakfast. Her daughter is at bedside. She states her breathing is somewhat improved from admission. She admits to being dyspneic at home with minimal exertion on oxygen. She states she has had lung cancer since 2008. She is continued to actively have chemotherapy. She is also complaining of pain in her shoulder on the right and in her pelvis. She states she has metastasis in her bones as well. We discussed her goals for care.She states she does not want to end up on machines, but becomes very anxious when she is dyspneic. She states her appetite has been poor for some time as well. Rest of review of systems is negative. Physical Exam Vital Signs: Temp Pulse Resp BP Pulse Ox 97.7 F 97 32 H 124/84 100 10/27/16 05:00 10/27/16 08:28 10/27/16 08:28 10/27/16 05:55 10/27/16 08:28 General appearance: PRESENT: no acute distress, mild distress, thin, well- developed Head exam: PRESENT: atraumatic, normocephalic Eye exam: PRESENT: conjunctiva pink, EOMI, PERRLA. ABSENT: scleral icterus Ear exam: PRESENT: normal external ear exam Mouth exam: PRESENT: moist, tongue midline Neck exam: ABSENT: carotid bruit, JVD, lymphadenopathy, thyromegaly Respiratory exam: PRESENT: crackles - bilaterally, decreased breath sounds, symmetrical, tachypnea Cardiovascular exam: PRESENT: RRR. ABSENT: diastolic murmur, rubs, systolic murmur Pulses: PRESENT: normal dorsalis pedis pul Vascular exam: PRESENT: normal capillary refill GI/Abdominal exam: PRESENT: normal bowel sounds, soft. ABSENT: distended, guarding, mass, organolmegaly, rebound, tenderness Rectal exam: PRESENT: deferred Extremities exam: PRESENT: full ROM. ABSENT: calf tenderness, clubbing, pedal edema Neurological exam: PRESENT: alert, awake, oriented to person, oriented to place , oriented to time, oriented to situation, CN II-XII grossly intact. ABSENT: motor sensory deficit Psychiatric exam: PRESENT: anxious Skin exam: PRESENT: dry, intact, warm. ABSENT: cyanosis, rash Results Impressions: Chest X-Ray 10/26/16 17:35 IMPRESSION: DIFFUSE PARENCHYMAL OPACITIES THROUGHOUT BOTH LUNGS. COMBINATION OF SCARRING AND METASTATIC DISEASE. PNEUMONIA CANNOT BE EXCLUDED. SIMILAR APPEARANCE TO THE PRIOR STUDY. Chest/Abdomen CTA 10/26/16 19:06 IMPRESSION: 1. NORMAL CTA OF THE CHEST. NO PULMONARY EMBOLI. 2. EXTENSIVE PARENCHYMAL CHANGES IN THE LUNGS SECONDARY TO METASTATIC DISEASE. STABLE CONFLUENT AREAS OF NODULARITY/CONSOLIDATION. NO CHANGE FROM THE PREVIOUS STUDY. 3. BONY METASTASES. Assessment & Plan - Diagnosis (1) Acute respiratory failure Qualifiers: Respiratory failure complication: unspecified whether with hypoxia or hypercapnia Qualified Code(s): J96.00 - Acute respiratory failure, unspecified whether with hypoxia or hypercapnia Is this a current diagnosis for this admission?: YesPlan: Patient with advanced stage four lung cancer, presents acute respiratory distress with hypoxia requiring BIPAP. May be some post obstructive pneumonia component will continue IV antibiotics for now. Nebulizer treatments (2) Stage 4 lung cancer Qualifiers: Laterality: unspecified laterality Qualified Code(s): C34.90 - Malignant neoplasm of unspecified part of unspecified bronchus or lung Is this a current diagnosis for this admission?: YesPlan: Patient actively receiving chemotherapy since 2008. Discussed with Dr. Art , her oncologist, she will see the patient in consult. (3) Respiratory distress Is this a current diagnosis for this admission?: YesPlan: We'll use BiPAP if needed for respiratory distress. Have asked palliative care to discuss goals of care with the patient, possible hospice care. (4) Hypomagnesemia Is this a current diagnosis for this admission?: YesPlan: Replete as needed (5) Abnormal chest CT Is this a current diagnosis for this admission?: Yes (6) Anemia Qualifiers: Anemia type: unspecified type Qualified Code(s): D64.9 - Anemia, unspecified Is this a current diagnosis for this admission?: YesPlan: chronic and stable (7) Diabetes mellitus type 2 in nonobese Is this a current diagnosis for this admission?: YesPlan: We'll continue glyburide and sliding-scale insulin. Will liberalize diet due to protein calorie malnutrition from her cancer (8) HTN (hypertension) Qualifiers: Hypertension type: essential hypertension Qualified Code(s): I10 - Essential (primary) hypertension Is this a current diagnosis for this admission?: YesPlan: Continue current antihypertensives. (9) Severe protein-calorie malnutrition Is this a current diagnosis for this admission?: YesPlan: Patient is on Marinol. Secondary to her underlying stage IV cancer she has very poor appetite. We'll allow her to eat which she likes - Time Time Spent with patient: 25-34 minutes Critical Time spent with patient: 25-34 minutes Medications reviewed and adjusted accordingly: Yes
[2016-10-27] MEDS: LORAZEPAM 0.5 MG TABLET PO PRN ×2 (13:42→22:01)
[2016-10-27] MEDS: ONDANSETRON HCL 8 MG TABLET PO SCH ×2 (17:22→23:08)
[2016-10-27] MEDS: GLIPIZIDE 10 MG TABLET PO SCH (17:23)
[2016-10-27] MEDS: DRONABINOL 2.5 MG CAPSULE PO SCH (17:23)
[2016-10-27] MEDS ORDERED: VANCOMYCIN HCL 500 MG in DEXTROSE 5%-WATER 100 ML IV SCH (18:00)
[2016-10-27] MEDS ORDERED: (PENDING PHARMACY ID) (Dronabinol [Marinol] 5 MG) PO SCH (18:00)
--- NOTE | 2016-10-27 20:44 | PROGRESS NOTE E ---
Progress Note NAME: SATHYA CORCORAN : 1955 AGE: 61Y DATE: ROOM: 309 SUBJECTIVE: Ms. 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 She was started on chemotherapy on February 22, 2009. She received 4 cycles of Alimta and cisplatin, she was switched to carboplatin and Alimta in 2008 due to tinnitus. She remained on maintenance Alimta from 2008 to 2010. She progressed in 2010 and was started on a combination of carboplatin, taxol, and Avastin. Avastin was discontinued due to proteinuria in 2011. She was switched from taxol to Taxotere in 2010 because of side effects. She then continued on Abraxane single agent and was doing well for many years. In July 2014, she progressed and was switched to Navelbine and carboplatin. Subsequently, she received Alimta and then in 2015 she required CyberKnife radiosurgery, which she received in addition to continuing chemotherapy. Unfortunately, her breathing has progressively gotten worse since the radiosurgery. She was admitted to the hospital with difficulty breathing. She is in the ICU. She is breathing a little more easier. She was in the room with her 2 daughters, and I had a long discussion with her with regards to her disease process. At this time, she understands that she has stage IV lung cancer and that it is not curable. She also understands that she is in respiratory failure. I explained to her that it would be futile to undergo endotracheal intubation with mechanical ventilation. I also explained that if she goes into cardiac arrest, it would be futile to have CPR done. She understands and has agreed to be DNR. She lives in a 2 story building and it would be difficult for her to climb stairs at home. She is requesting placement in an assisted living facility. I spoke to her about hospice. She is going to think about this. At this time, I explained that I am going to hold off chemotherapy as her respiratory status has worsened and her performance status is low. More than half of this 60 minute visit was spent in counseling and coordinating her care. Thank you for this consultation and for taking care of her during this hospitalization. DICTATING PHYSICIAN: NINI LUCIANO M.D. [id number] PHY#: [id number] ID: [id number] JOB#: [id number] ACCT: [id number] cc: > MARYAND
[2016-10-27] MEDS: MORPHINE SULFATE SR 30 MG TABLET PO SCH (21:32)
[2016-10-27] MEDS ORDERED: CEFEPIME HCL 2 GM in DEXTROSE 5%-WATER 50 ML IV SCH (22:00)
[2016-10-28] MEDS: DRONABINOL 2.5 MG CAPSULE PO SCH ×2 (06:28→17:42)
[2016-10-28] MEDS: METHYLPREDNISOLONE INJ 40 MG/1 ML SDV IV SCH ×3 (06:29→21:19)
[2016-10-28] MEDS: ONDANSETRON HCL 8 MG TABLET PO SCH ×3 (06:29→17:42)
[2016-10-28] MEDS: OXYCODONE HCL IR 5 MG TABLET PO PRN ×3 (06:37→21:20)
[2016-10-28] MEDS: GLIPIZIDE 10 MG TABLET PO SCH ×2 (07:48→16:38)
[2016-10-28] MEDS: IPRATROPIUM/ALBUTEROL 0.5-2.5 MG/3 ML AMPUL NEB SCH ×3 (07:51→19:39)
[2016-10-28] MEDS: FAMOTIDINE INJ/PF 20 MG/2 ML SDV IV SCH (10:06)
[2016-10-28] MEDS: LISINOPRIL 10 MG TABLET PO SCH (10:07)
[2016-10-28] MEDS: MORPHINE SULFATE SR 30 MG TABLET PO SCH ×2 (10:07→21:22)
[2016-10-28] MEDS: DOXYCYCLINE HYCLATE 100 MG in DEXTROSE 5%-WATER 250 ML IV SCH (10:07)
[2016-10-28] MEDS: ASPIRIN 81 MG TABLET, ENT COATED PO SCH (10:07)
[2016-10-28] MEDS: MULTIVITAMIN TABLET PO SCH (10:07)
[2016-10-28] MEDS: OXYCODONE-ACETAMINOPHEN 5-325 MG TABLET PO PRN ×2 (15:27→21:22)
[2016-10-28] MEDS: INSULIN LISPRO 100 UNIT/ML 3 ML VIAL SUBCUT PRN ×2 (16:40→21:22)
[2016-10-28] MEDS ORDERED: INSULIN LISPRO 100 UNIT/ML 3 ML VIAL SUBCUT ONE (18:26)
[2016-10-29] MEDS: ONDANSETRON HCL 8 MG TABLET PO SCH ×4 (00:07→17:41)
[2016-10-29] MEDS: OXYCODONE HCL IR 5 MG TABLET PO PRN ×2 (04:17→17:45)
[2016-10-29] MEDS: OXYCODONE-ACETAMINOPHEN 5-325 MG TABLET PO PRN (04:18)
[2016-10-29] MEDS: DRONABINOL 2.5 MG CAPSULE PO SCH ×2 (06:59→17:41)
[2016-10-29] MEDS: METHYLPREDNISOLONE INJ 40 MG/1 ML SDV IV SCH (06:59)
[2016-10-29] MEDS: IPRATROPIUM/ALBUTEROL 0.5-2.5 MG/3 ML AMPUL NEB SCH ×3 (08:09→19:47)
[2016-10-29] MEDS: INSULIN LISPRO 100 UNIT/ML 3 ML VIAL SUBCUT PRN ×2 (08:18→17:43)
[2016-10-29] MEDS: GLIPIZIDE 10 MG TABLET PO SCH ×2 (08:19→17:41)
[2016-10-29] MEDS: FAMOTIDINE INJ/PF 20 MG/2 ML SDV IV SCH (10:13)
[2016-10-29] MEDS: PREDNISONE 20 MG TABLET PO SCH (10:14)
[2016-10-29] MEDS: MULTIVITAMIN TABLET PO SCH (10:14)
[2016-10-29] MEDS: LISINOPRIL 10 MG TABLET PO SCH (10:14)
[2016-10-29] MEDS: MORPHINE SULFATE SR 30 MG TABLET PO SCH ×2 (10:14→22:10)
[2016-10-29] MEDS: ASPIRIN 81 MG TABLET, ENT COATED PO SCH (10:15)
[2016-10-29] MEDS: MORPHINE SULFATE 10 MG/ML INJ IV PRN ×2 (13:57→20:27)
[2016-10-29] MEDS: LORAZEPAM 0.5 MG TABLET PO PRN (19:37)
--- NOTE | 2016-10-29 23:00 | Progress Note ---
Provider Note Provider Note: Brief follow up visit with patient and her friend. She is breathing with NC with less dyspnea. She states her nurse told her to stop talking because her B/ P is elevated. I assisted her with her lunch and she told me that Dr. Art said no more chemo and that she should be DNR. She appeared relieved that these decisions have been made. She said she is going to put her futre into God 's hands and hopes to go to a facility where they will help her as she realizes she cannot live alone now. Mrs. Corcoran denies pain and is eating better. She looks more relaxed and is very grateful for Dr. Art's care and assistance. Discharge planning will help find placement for her as desired ad available. No need for medicaiton changes as frantz is comfortable. Will follow for support. Total time 15 min with patient.
[2016-10-30] MEDS: ONDANSETRON HCL 8 MG TABLET PO SCH ×4 (00:20→19:02)
[2016-10-30] MEDS: DRONABINOL 2.5 MG CAPSULE PO SCH ×2 (06:10→19:02)
[2016-10-30] MEDS: OXYCODONE HCL IR 5 MG TABLET PO PRN ×2 (07:46→19:01)
[2016-10-30] MEDS: OXYCODONE-ACETAMINOPHEN 5-325 MG TABLET PO PRN ×2 (07:47→19:01)
[2016-10-30] MEDS: GLIPIZIDE 10 MG TABLET PO SCH ×2 (07:47→17:53)
[2016-10-30] MEDS: IPRATROPIUM/ALBUTEROL 0.5-2.5 MG/3 ML AMPUL NEB SCH ×3 (07:49→21:02)
[2016-10-30] MEDS: MULTIVITAMIN TABLET PO SCH (10:39)
[2016-10-30] MEDS: LISINOPRIL 10 MG TABLET PO SCH (10:39)
[2016-10-30] MEDS: PREDNISONE 20 MG TABLET PO SCH (10:39)
[2016-10-30] MEDS: ASPIRIN 81 MG TABLET, ENT COATED PO SCH (10:39)
[2016-10-30] MEDS: FAMOTIDINE INJ/PF 20 MG/2 ML SDV IV SCH (10:39)
[2016-10-30] MEDS: MORPHINE SULFATE SR 30 MG TABLET PO SCH ×2 (10:39→22:55)
[2016-10-30] MEDS: LORAZEPAM INJ 2 MG/1 ML VIAL IV PRN ×2 (10:46→19:01)
--- NOTE | 2016-10-30 11:37 | PDOC PROGRESS REPORT ---
Subjective Progress Note for:: 10/30/16 Subjective:: Patient seen on morning rounds. She is resting in bed on 3l/min via n/c. She she has some increasing shortness of breath overnight. Nursing gave her Ativan which didn't allow her to relax and used her work of breathing. She states nursing is keeping her pain well controlled. She states her appetite has been poor for some time as well. Rest of review of systems is negative. Physical Exam Vital Signs: Temp Pulse Resp BP Pulse Ox 97.7 F 109 H 19 154/96 H 89 L 10/30/16 07:55 10/30/16 07:55 10/30/16 07:55 10/30/16 07:55 10/30/16 07:55 Intake & Output 10/29/16 10/30/16 10/31/16 06:59 06:59 06:59 Intake Total 3130 660 Output Total 390 390 Balance 2740 270 Weight 47.8 kg 47.2 kg General appearance: PRESENT: no acute distress, thin, well-developed Head exam: PRESENT: atraumatic, normocephalic Eye exam: PRESENT: conjunctiva pink, EOMI, PERRLA. ABSENT: scleral icterus Ear exam: PRESENT: normal external ear exam Mouth exam: PRESENT: moist, tongue midline Neck exam: ABSENT: carotid bruit, JVD, lymphadenopathy, thyromegaly Respiratory exam: PRESENT: crackles, symmetrical, unlabored Cardiovascular exam: PRESENT: RRR, tachycardia. ABSENT: diastolic murmur, rubs , systolic murmur Pulses: PRESENT: normal dorsalis pedis pul Vascular exam: PRESENT: normal capillary refill GI/Abdominal exam: PRESENT: normal bowel sounds, soft. ABSENT: distended, guarding, mass, organolmegaly, rebound, tenderness Rectal exam: PRESENT: deferred Extremities exam: PRESENT: full ROM. ABSENT: calf tenderness, clubbing, pedal edema Neurological exam: PRESENT: alert, awake, oriented to person, oriented to place , oriented to time, oriented to situation, CN II-XII grossly intact. ABSENT: motor sensory deficit Psychiatric exam: PRESENT: anxious Skin exam: PRESENT: dry, intact, warm. ABSENT: cyanosis, rash Results Impressions: Chest X-Ray 10/26/16 17:35 IMPRESSION: DIFFUSE PARENCHYMAL OPACITIES THROUGHOUT BOTH LUNGS. COMBINATION OF SCARRING AND METASTATIC DISEASE. PNEUMONIA CANNOT BE EXCLUDED. SIMILAR APPEARANCE TO THE PRIOR STUDY. Chest/Abdomen CTA 10/26/16 19:06 IMPRESSION: 1. NORMAL CTA OF THE CHEST. NO PULMONARY EMBOLI. 2. EXTENSIVE PARENCHYMAL CHANGES IN THE LUNGS SECONDARY TO METASTATIC DISEASE. STABLE CONFLUENT AREAS OF NODULARITY/CONSOLIDATION. NO CHANGE FROM THE PREVIOUS STUDY. 3. BONY METASTASES. Assessment & Plan - Diagnosis (1) Acute respiratory failure Qualifiers: Respiratory failure complication: unspecified whether with hypoxia or hypercapnia Qualified Code(s): J96.00 - Acute respiratory failure, unspecified whether with hypoxia or hypercapnia Is this a current diagnosis for this admission?: YesPlan: Patient with advanced stage four lung cancer, presents acute respiratory distress with hypoxia requiring BIPAP. She has not used BiPAP for the last 24 hrs. she does desaturate easily with coughing. She has when necessary morphine ordered for respiratory distress. We will change her Ativan from oral to IV while she remains here (2) Stage 4 lung cancer Qualifiers: Laterality: unspecified laterality Qualified Code(s): C34.90 - Malignant neoplasm of unspecified part of unspecified bronchus or lung Is this a current diagnosis for this admission?: YesPlan: After discussion with , her oncologist, chemotherapy will be stopped due to progression of disease. The patient is agreeable to palliative care at present time as well as her daughters. She is a DO NOT RESUSCITATE/DO NOT INTUBATE (3) Respiratory distress Is this a current diagnosis for this admission?: YesPlan: We'll use BiPAP if needed for respiratory distress. Have asked palliative care to discuss goals of care with the patient, possible hospice care. (4) Hypomagnesemia Is this a current diagnosis for this admission?: YesPlan: Replete as needed (5) Abnormal chest CT Is this a current diagnosis for this admission?: Yes (6) Anemia Qualifiers: Anemia type: unspecified type Qualified Code(s): D64.9 - Anemia, unspecified Is this a current diagnosis for this admission?: YesPlan: chronic and stable (7) Diabetes mellitus type 2 in nonobese Is this a current diagnosis for this admission?: YesPlan: We'll continue glyburide and sliding-scale insulin. Will liberalize diet due to protein calorie malnutrition from her cancer (8) HTN (hypertension) Qualifiers: Hypertension type: essential hypertension Qualified Code(s): I10 - Essential (primary) hypertension Is this a current diagnosis for this admission?: YesPlan: Continue current antihypertensives. (9) Severe protein-calorie malnutrition Is this a current diagnosis for this admission?: YesPlan: Patient is on Marinol. Secondary to her underlying stage IV cancer she has very poor appetite. We'll allow her to eat which she likes - Time Time Spent with patient: 25-34 minutes Critical Time spent with patient: 15-24 minutes Medications reviewed and adjusted accordingly: Yes Anticipated discharge: SNF
[2016-10-31] MEDS: ONDANSETRON HCL 8 MG TABLET PO SCH ×2 (01:01→05:41)
[2016-10-31] MEDS: LORAZEPAM INJ 2 MG/1 ML VIAL IV PRN ×2 (03:37→08:37)
[2016-10-31] MEDS ORDERED: LORAZEPAM INJ 2 MG/1 ML VIAL IV ONE (05:30)
[2016-10-31] MEDS: DRONABINOL 2.5 MG CAPSULE PO SCH (05:41)
[2016-10-31] MEDS: IPRATROPIUM/ALBUTEROL 0.5-2.5 MG/3 ML AMPUL NEB SCH (08:04)
[2016-10-31 08:09] VITALS: BP 124/81
[2016-10-31] MEDS: GLIPIZIDE 10 MG TABLET PO SCH (08:15)
[2016-10-31] MEDS: MORPHINE SULFATE 10 MG/ML INJ IV PRN (08:16)
--- NOTE | 2016-10-31 11:56 | Death Summary ---
Summary Date : 10/31/16 Time of :: 09:08 Autopsy: No Resuscitation Status: Comfort Measures Only - Final Diagnosis (1) Acute respiratory failure Is this a current diagnosis for this admission?: Yes (2) Stage 4 lung cancer Is this a current diagnosis for this admission?: Yes (3) Respiratory distress Is this a current diagnosis for this admission?: Yes (4) Hypomagnesemia Is this a current diagnosis for this admission?: Yes (5) Abnormal chest CT Is this a current diagnosis for this admission?: Yes (6) Anemia Is this a current diagnosis for this admission?: Yes (7) Diabetes mellitus type 2 in nonobese Is this a current diagnosis for this admission?: Yes (8) HTN (hypertension) Is this a current diagnosis for this admission?: Yes (9) Severe protein-calorie malnutrition Is this a current diagnosis for this admission?: Yes Hospital Course:: Patient was referred to the hospital service for admission after presenting with acute respiratory failure. Patient has known history of stage IV lung cancer, since 2008. She has been taking active treatment with Dr. Art, [facility]. She has been on home oxygen by nasal cannula for several years. She presented with acute on chronic respiratory failure with hypoxemia with oxygen saturations of in the 80s on 3 L/m nasal cannula. She was placed on BiPAP therapy. CTA of the chest was obtained to rule out PE. No PACs were observed. She was noted to have extensive metastatic disease throughout both lung choi. There is no signs of pneumonia. She was empirically placed on IV antibiotics and steroids. She was admitted to the ICU with pulmonary consult. Dr. Jimenez, phlebotomist lab assistant, saw the patient in consult. Goals of care were discussed with patient and her family. Patient stated she did not want to be placed on machines to survive. There is some conflict with the daughters regarding this, who wanted her to continue to be a full code. Her oncologist, Dr Art, was consult and saw the patient in consult. She had a jenelle discussion with the patient and her daughters regarding the futility of being full code. She discussed end-of-life decisions with patient and her daughters. Palliative care consult was also placed. Jaclyn Daniel, SO[facility], saw the patient in consult as well. The patient decided to discontinue chemotherapy and become a DO NOT RESUSCITATE. Her condition continued to deteriorate over the next 2 days. This morning she is having increasing respiratory difficulty. Discussion was made with the patient and her daughters regarding changing goals to comfort care only. They're all in agreement. Comfort measures were put into place this morning. Daughters were at the bedside. Patient at 09:08 with daughters at her bedside.
--- NOTE | 2016-10-31 14:49 | PDOC CONSULTATION ---
Consultation Consult Date: 10/28/16 Attending physician:: JOHN PAUL ALVARADO History of Present Illness Admission Date/PCP: 10/27/16 09:01 CLAUDETTE MANUEL MD History of Present Illness: SATHYA HINSON is a 61 year old female with stage IV lung cancer, metastatic to bone, long-term smoker, having quit 2 weeks ago, but with no specific diagnosis of asthma or COPD, who presents to the emergency room for evaluation of above complaint. She denies hemoptysis her PPD status is unknown she admits to cough is usually dry and nonproductive she has been diagnosed with non-small cell lung cancer stage IV and complains of pain in her hips and lower extremities to smoke one half packs a day for 50 years and has as above has smoked up until the time of admission. She has 2 pets no recent travel no history of chronic lung disease as a child or adolescent. She admits to exposure large amounts of passive smoke as a child as well as an adult. She denies snoring but admits to restless sleep unrestful sleep nocturia and daytime somnolence Past Medical History Cardiac Medical History: Reports: Hypertension Denies: Congestive Heart Failure, DVT, Myocardial Infarction, Hyperlipidema, Pulmonary Embolism Pulmonary Medical History: Reports: Other - Stage IV lung cancer Denies: Asthma, Chronic Obstructive Pulmonary Disease (COPD) EENT Medical History: Denies: Eyes, Ears Neurological Medical History: Reports: None Denies: Hemorrhagic CVA, Ischemic CVA, Seizures Endocrine Medical History: Reports: Diabetes Mellitus Type 1, Diabetes Mellitus Type 2 Denies: Hyperthyroidism, Hypothyroidism Renal/ Medical History: Reports: Nephrolithiasis - Distant history Malignancy Medical History: Reports: Lung Cancer - Stage IV GI Medical History: Denies: Cirrhosis, Gastroesophageal Reflux Disease, Hepatitis, Peptic Ulcer Disease Musculoskeltal Medical History: Denies: Arthritis Skin Medical History: Denies: Eczema, Psoriasis Psychiatric Medical History: Reports: General Anxiety Disorder, Tobacco Dependency Denies: Alcohol Dependency, Depression, Substance Abuse Hematology: Reports: Anemia Infectious Medical History: Denies: Hepatitis B, Hepatitis C Past Surgical History Past Surgical History: Reports: Orthopedic Surgery - Rotator cuff repair right shoulder Social History Lives with: Alone Smoking Status: Former Smoker Passive smoke exposure as: Both Frequency of Alcohol Use: None Hx Recreational Drug Use: No Drugs: None Hx Prescription Drug Abuse: No Do you have pets?: Yes Have you had any respiratory illnesses as a child?: No Have you been exposed to any sick contacts recently?: No Have you had any recent respiratory illnesses?: Yes Have you travelled outside of [place] in the past 12 months?: No - Advance Directive Resuscitation Status: Do Not Resuscitate Family History Family History: Reviewed & Not Pertinent Parental Family History Reviewed: Yes Children Family History Reviewed: Yes Sibling(s) Family History Reviewed.: Yes Medication/Allergy Home Medications: Aspirin [Aspirin EC] 81 mg PO DAILY 10/27/16 Dronabinol [Marinol] 5 mg PO BID 10/27/16 Glipizide [Glucotrol 10 mg Tablet] 10 mg PO BID 10/27/16 Lisinopril [Prinivil 10 mg Tablet] 10 mg PO DAILY 10/27/16 Lorazepam [Ativan 0.5 mg Tablet] 0.5 mg PO Q6HP PRN 10/27/16 Magic Mouthwash 5 ml PO DAILYP PRN 10/27/16 Morphine Sulfate [Morphine Sulfate ER] 30 mg PO Q12 10/27/16 Multivitamin [Daily Multiple Vitamin] 1 tab PO DAILY 10/27/16 Ondansetron HCl [Zofran 8 mg Tablet] 8 mg PO Q6 10/27/16 Oxycodone HCl/Acetaminophen [Percocet 10-325 mg Tablet] 1 tab PO Q4HP PRN Allergies/Adverse Reactions: amoxicillin trihydrate [From Augmentin] Allergy (Verified 10/26/16 23:09) azithromycin [Azithromycin] Allergy (Verified 10/26/16 17:10) hydrocodone bitartrate [From Vicodin] Allergy (Verified 10/26/16 17:10) Potassium Clavulanate * [From Augmentin] Allergy (Verified 10/26/16 23:09) moxifloxacin HCl [From Avelox] Adverse Reaction (Verified 10/26/16 17:10) Physical Exam Vital Signs: Temp Pulse Resp BP Pulse Ox 97.8 F 114 H 20 151/97 H 97 10/28/16 12:02 10/28/16 12:02 10/28/16 12:02 10/28/16 12:02 10/28/16 12:02 Intake & Output 10/27/16 10/28/16 10/29/16 06:59 06:59 06:59 Intake Total 1400 530 Output Total 1000 Balance 400 530 Weight 46.5 kg General appearance: PRESENT: cooperative, disheveled, mild distress, thin Head exam: PRESENT: atraumatic, normocephalic Eye exam: PRESENT: conjunctiva pale, EOMI Mouth exam: PRESENT: dry mucosa, neck supple Teeth exam: PRESENT: poor dentation Neck exam: ABSENT: carotid bruit, JVD, lymphadenopathy, thyromegaly Respiratory exam: PRESENT: decreased breath sounds, prolonged expiratory phas, rales, rhonchi, symmetrical Cardiovascular exam: PRESENT: RRR, +S1, +S2 Pulses: PRESENT: normal radial pulses GI/Abdominal exam: PRESENT: ascites Rectal exam: PRESENT: deferred Gentrourinary exam: PRESENT: indwelling catheter Musculoskeletal exam: PRESENT: normal inspection Neurological exam: PRESENT: alert, awake Psychiatric exam: PRESENT: normal mood Skin exam: PRESENT: dry Results Impressions: Chest X-Ray 10/26/16 17:35 IMPRESSION: DIFFUSE PARENCHYMAL OPACITIES THROUGHOUT BOTH LUNGS. COMBINATION OF SCARRING AND METASTATIC DISEASE. PNEUMONIA CANNOT BE EXCLUDED. SIMILAR APPEARANCE TO THE PRIOR STUDY. Chest/Abdomen CTA 10/26/16 19:06 IMPRESSION: 1. NORMAL CTA OF THE CHEST. NO PULMONARY EMBOLI. 2. EXTENSIVE PARENCHYMAL CHANGES IN THE LUNGS SECONDARY TO METASTATIC DISEASE. STABLE CONFLUENT AREAS OF NODULARITY/CONSOLIDATION. NO CHANGE FROM THE PREVIOUS STUDY. 3. BONY METASTASES. Assessment & Plan - Diagnosis (1) Respiratory distress Is this a current diagnosis for this admission?: Yes (2) Severe protein-calorie malnutrition Is this a current diagnosis for this admission?: Yes (3) Anemia Qualifiers: Anemia type: unspecified type Qualified Code(s): D64.9 - Anemia, unspecified Is this a current diagnosis for this admission?: Yes (4) Stage 4 lung cancer Qualifiers: Laterality: unspecified laterality Qualified Code(s): C34.90 - Malignant neoplasm of unspecified part of unspecified bronchus or lung Is this a current diagnosis for this admission?: Yes
--- NOTE | 2016-10-31 14:52 | PDOC PROGRESS REPORT ---
Subjective Progress Note for:: 10/29/16 Subjective:: Weak all over Physical Exam Vital Signs: Temp Pulse Resp BP Pulse Ox 98.3 F 108 H 17 124/81 95 10/31/16 07:16 10/31/16 08:04 10/31/16 08:04 10/31/16 07:16 10/31/16 07:16 Intake & Output 10/30/16 10/31/16 11/01/16 06:59 06:59 06:59 Intake Total 660 90 Output Total 390 Balance 270 90 Weight 47.2 kg 45.631 kg General appearance: PRESENT: disheveled, mild distress Head exam: PRESENT: atraumatic, normocephalic Eye exam: PRESENT: conjunctiva pale, EOMI Mouth exam: PRESENT: dry mucosa, neck supple Teeth exam: PRESENT: poor dentation Neck exam: PRESENT: carotid bruit Respiratory exam: PRESENT: crackles, decreased breath sounds, prolonged expiratory phas, rhonchi, symmetrical, wheezes Cardiovascular exam: PRESENT: RRR, +S1, +S2 GI/Abdominal exam: PRESENT: ascites Rectal exam: PRESENT: deferred Gentrourinary exam: PRESENT: indwelling catheter Musculoskeletal exam: PRESENT: normal inspection Neurological exam: PRESENT: awake Skin exam: PRESENT: dry Results Impressions: Chest X-Ray 10/26/16 17:35 IMPRESSION: DIFFUSE PARENCHYMAL OPACITIES THROUGHOUT BOTH LUNGS. COMBINATION OF SCARRING AND METASTATIC DISEASE. PNEUMONIA CANNOT BE EXCLUDED. SIMILAR APPEARANCE TO THE PRIOR STUDY. Chest/Abdomen CTA 10/30/16 14:24 IMPRESSION: 1. NO PULMONARY EMBOLI. 2. Extensive, stable metastatic disease involving the lungs and bones with large areas confluent mass/ consolidation. Assessment & Plan - Diagnosis (1) Respiratory distress Is this a current diagnosis for this admission?: Yes (2) Severe protein-calorie malnutrition Is this a current diagnosis for this admission?: Yes (3) Anemia Qualifiers: Anemia type: unspecified type Qualified Code(s): D64.9 - Anemia, unspecified Is this a current diagnosis for this admission?: Yes (4) Stage 4 lung cancer Qualifiers: Laterality: unspecified laterality Qualified Code(s): C34.90 - Malignant neoplasm of unspecified part of unspecified bronchus or lung Is this a current diagnosis for this admission?: Yes
--- NOTE | 2016-10-31 14:55 | PDOC PROGRESS REPORT ---
Subjective Progress Note for:: 10/31/16 Subjective:: Complaining of pains in legs chest and pelvis hard to breathe Physical Exam Vital Signs: Temp Pulse Resp BP Pulse Ox 98.3 F 108 H 17 124/81 95 10/31/16 07:16 10/31/16 08:04 10/31/16 08:04 10/31/16 07:16 10/31/16 07:16 Intake & Output 10/30/16 10/31/16 11/01/16 06:59 06:59 06:59 Intake Total 660 90 Output Total 390 Balance 270 90 Weight 47.2 kg 45.631 kg General appearance: PRESENT: disheveled, mild distress, thin, well-developed Head exam: PRESENT: atraumatic, normocephalic Eye exam: PRESENT: conjunctiva pale, EOMI Mouth exam: PRESENT: dry mucosa, neck supple Teeth exam: PRESENT: poor dentation Neck exam: ABSENT: carotid bruit, JVD, lymphadenopathy, thyromegaly Respiratory exam: PRESENT: decreased breath sounds, prolonged expiratory phas, rales, rhonchi, symmetrical, wheezes Cardiovascular exam: PRESENT: RRR, +S1, +S2 GI/Abdominal exam: PRESENT: normal bowel sounds, soft. ABSENT: distended, guarding, mass, organolmegaly, rebound, tenderness Rectal exam: PRESENT: deferred Gentrourinary exam: PRESENT: indwelling catheter Musculoskeletal exam: PRESENT: normal inspection Neurological exam: PRESENT: awake Psychiatric exam: PRESENT: normal mood Skin exam: PRESENT: dry Results Impressions: Chest X-Ray 10/26/16 17:35 IMPRESSION: DIFFUSE PARENCHYMAL OPACITIES THROUGHOUT BOTH LUNGS. COMBINATION OF SCARRING AND METASTATIC DISEASE. PNEUMONIA CANNOT BE EXCLUDED. SIMILAR APPEARANCE TO THE PRIOR STUDY. Chest/Abdomen CTA 10/30/16 14:24 IMPRESSION: 1. NO PULMONARY EMBOLI. 2. Extensive, stable metastatic disease involving the lungs and bones with large areas confluent mass/ consolidation. Assessment & Plan - Diagnosis (1) Respiratory distress Is this a current diagnosis for this admission?: YesPlan: We will check CTA as patient respiratory status seems to have worsened from immobility as well as a malignancy she is certainly at high risk for PE (2) Severe protein-calorie malnutrition Is this a current diagnosis for this admission?: Yes (3) Anemia Qualifiers: Anemia type: unspecified type Qualified Code(s): D64.9 - Anemia, unspecified Is this a current diagnosis for this admission?: Yes (4) Stage 4 lung cancer Qualifiers: Laterality: unspecified laterality Qualified Code(s): C34.90 - Malignant neoplasm of unspecified part of unspecified bronchus or lung Is this a current diagnosis for this admission?: Yes
== END 2016-10-31 09:08 | disposition left against medical advice (07) | DRG 189 ==
LOC: ER 17:01 → EH 21:51 → UNDOADMIN 21:51 → EH 23:10 → UNDOADMIN 23:10 → EH 10-27 00:20 → ICU 10-27 00:20 → 3N 10-27 18:06
PROVIDERS: ADMIT Family Medicine; ATTEND Family Medicine
PROC: 5A09457 Assistance with Respiratory Ventilation, 24-96 Consecutive Hours, Continuous Positive Airway Pressure (ICD-10-PCS; principal; 2016-10-26)
PROC: 3E0F73Z Introduction of Anti-inflammatory into Respiratory Tract, Via Natural or Artificial Opening (ICD-10-PCS; 2016-10-27)
DX: J96.21 Acute and chronic respiratory failure with hypoxia (principal); E43 Unspecified severe protein-calorie malnutrition; N39.0 Urinary tract infection, site not specified; C34.90 Malignant neoplasm of unspecified part of unspecified bronchus or lung; C79.51 Secondary malignant neoplasm of bone; Z68.1 Body mass index [BMI] 19.9 or less, adult; E87.5 Hyperkalemia; E83.42 Hypomagnesemia; D64.9 Anemia, unspecified; E11.9 Type 2 diabetes mellitus without complications; I10 Essential (primary) hypertension; F41.1 Generalized anxiety disorder; Z60.2 Problems related to living alone; Z66 Do not resuscitate; Z79.82 Long term (current) use of aspirin; Z79.899 Other long term (current) drug therapy; Z88.1 Allergy status to other antibiotic agents; Z88.3 Allergy status to other anti-infective agents; Z88.6 Allergy status to analgesic agent; Z88.8 Allergy status to other drugs, medicaments and biological substances; Z87.891 Personal history of nicotine dependence; Z83.3 Family history of diabetes mellitus; Z82.49 Family history of ischemic heart disease and other diseases of the circulatory system
CPT/HCPCS: 36415; 71010; 71275; 80048; 80053; 81001; 82803; 82962; 83735; 84132; 85025; 87040; 87086; 93005; 93010; 94640; 94660; 94799; 96361; 96374; 96375; 96376; 99291; J0692; J0696; J1815; J2060; J2270; J2405; J2920; J2930; J3370; J3475; J3490; J7030; J7040; J7060; J7512; J7620; Q0167; S0028; S0119